=== PATIENT | male | born 1990 | race Hispanic/Latino ===

== ENCOUNTER 2017-09-29 11:33 | Emergency (ER) | payer OTHER ==
[2017-09-29] MEDS: DERMABOND TOPICAL SKIN ADHESIVE TOP (16:02)
== END 2017-09-29 16:41 | disposition home or self-care (01) ==
LOC: M ED 11:33
DX: S62.661B Nondisplaced fracture of distal phalanx of left index finger, initial encounter for open fracture (principal); W20.8XXA Other cause of strike by thrown, projected or falling object, initial encounter; Y92.89 Other specified places as the place of occurrence of the external cause
CPT/HCPCS: J0690